=== PATIENT | male | born 1985 | race Caucasian/White ===

== ENCOUNTER 2024-08-27 14:45 | Outpatient (RCR) | payer BC, SELFPAY ==
--- OUTSIDE RECORDS SUMMARY | 2024-08-05 14:45 | XMS_ITS | Clinical Summary ---
Author Organization [facility] Address [place], [place] [address] Care Team Providers Care Contract Administrative Assistant Name Role Phone Guerline aDi DO Primary Care Provider [phone] Allergies No known active allergies Medications No known medications Active Problems Problem Noted Date Diagnosed Date JOINT PAIN LOWER LEG (Right Knee) 03/22/2004 KNEE INTERNAL DERANGEMENT/RT 11/24/2003 Immunizations Name Administration Dates Next Due DTaP 04/03/1990,03/24/1987 Inactivated Polio Vaccine 04/03/1990,03/24/1987 Influenza, IIV3 (Age >=3 years) 05/21/2011 Influenza, IIV4 07/04/2021,06/18/2018 MMR 03/25/1997,01/06/1987 Td (Age >=7 Years) 10/18/2020 Tdap 08/27/2010 Family History Medical History Relation Name Comments No Known Problems Father Heart attack Maternal Grandfather Cancer-colon Maternal Grandmother Anxiety disorder Mother Thyroid Disease Mother No Known Problems Paternal Grandfather No Known Problems Paternal Grandmother Thyroid Disease Sister Relation Name Status Comments Father Maternal Grandfather Maternal Grandmother Mother Paternal Grandfather Paternal Grandmother Sister Social History Tobacco Use Types Packs/Day Years Used Date Smoking Tobacco: Never Smokeless Tobacco: Never Tobacco Cessation:Counseling Given: Yes Alcohol Use Standard Drinks/Week Comments Yes 2 (1 standard drink = 0.6 oz pur e alcohol) PHQ-2 Answer Date Recorded PHQ-2 TOTAL SCORE 2 01/22/2023 Social Connections Answer Date Recorded Frequency of Communication with Friends and Fami ly Not on file 07/25/2021 Financial Resource Strain Answer Date R ecorded Difficulty of Paying Living Expenses Not on file 07/25/2021 Difficulty of Paying Living Expenses Not on file 07/25/2021 Sex and Gender Information Value Date Recorded Sex Assigned at Not on file Legal Sex Male 7:02 AM [employer] Gender Identity Not on file Sexual Orientation Not on file Obstetrics History Last Filed Vital Signs Vital Sign Reading Time Taken Comments Blood Pressure 128/77 02/10/2024 1:26 PM CDT Pulse 82 02/10/2024 1:26 PM CDT Temperature 36.7 C (98.1 F) 10/18/2020 2:56 PM CDT Respiratory Rate 12 03/09/2015 11:02 AM CDT Oxygen Saturation 98% 02/10/2024 1:26 PM CDT Inhaled Oxygen Concentration - - Weight 86.4 kg (190 lb 6.4 oz) 02/10/2024 1:26 P M CDT Height 177.5 cm (5' 9.88) 01/22/2023 12:57 PM C DT Body Mass Index 27.41 01/22/2023 12:57 PM CDT Plan of Treatment Health Maintenance Due Date Last Done Comments HIV for age 15-65 01/19/2000 Hepatitis C screening for age 18-79 2003 BMI (ht and wt on same day) for age 18+ 01/23/2024 01/22/2023, 11/21/2021, 10/18/2020 Depression screening for age 12+ 01/23/2024 01/22/2023, 10/20/2020, 10/20/2020, Additional history exists COVID-19 vaccine series (2023- season) 2024 07/23/2021, 12/13/2020, 11/22/2020 Influenza for age 9-49 04/04/2024 , 06/18/2018, 05/21/2011 Lipids for age 35-44 01/23/2028 01/22/2023, 10/19/19 Tetanus booster 10/18/2030 10/18/2020, 08/27/2010 Tdap Completed 08/27/2010 Pneumococcal series for age 6-49 Aged Out No longer eligible based on patient's age to complete this topic Procedures Procedure Name Priority Date/Time Associated Diagnosis Comments LIPID PANEL W REFLEX MEASURED LDL Routine 01/22/2023 1:38 PM CDT Screening cholesterol level from Last 3 Months or Most Recently Relevant to Health Maintenance Results * (ABNORMAL) LIPID PANEL W REFLEX MEASURED LDL (01/22/2023 1:38 PM CDT) CHOLESTEROL,TOTAL 208(H) 100 - 199 mg/dL 01/22/2023 11:15 PM CDT [facility] Comment: Cholesterol, Total Reference Ranges Desirable <200 mg/dL Borderline 200-239 mg/dL High >=240 mg/dL TRIGLYCERIDES 217(H) <150 mg/dL 01/22/2023 11:15 PM CDT [facility] HDL CHOLESTEROL 37(L) >40 mg/dL 11:15 PM CDT [facility] NON-HDL CHOLESTEROL 171(H) <145 mg/dl 01/22/2023 11:15 PM CDT [facility] CHOL/HDL RATIO 5.62(H) <4.50 01/22/2023 11:15 PM CDT [facility] LDL CHOLESTEROL 128 <=130 mg/dL 01/22/2023 11:15 PM CDT [facility] VLDL CHOLESTEROL 43(H) <=30 mg/dL 01/22/2023 11:15 PM CDT [facility] PROVIDER ORDERED STATUS RANDOM 01/22/2023 11:15 PM CDT [facility] Blood BLOOD SPECIMEN / Unknown Venipuncture / Unknown 01/22/2023 1:38 PM CDT 01/22/2023 1:38 PM CDT us Guerline Dai DO CHEMISTRY Final Result [facility] [address] [place] [address], [place] from Last 3 Months or Most Recently Relevant to Health Maintenance Insurance [facility] Care Teams Contract Administrative Assistant Relationship Specialty Start Date End Date Guerline Dai [place] [address] PCP - General Internal Medicine 10/31/20
== END 2024-12-25 23:59 | disposition home or self-care (01) ==
PROVIDERS: Visit Provider Family Medicine
DX: M54.2 Cervicalgia (principal); G89.29 Other chronic pain; R20.0 Anesthesia of skin; R20.2 Paresthesia of skin; M25.512 Pain in left shoulder; Z51.89 Encounter for other specified aftercare
CPT/HCPCS: 97110; 97140; 97161